=== PATIENT | male | born 1960 | race Caucasian/White ===

== ENCOUNTER 2019-08-05 14:41 | Emergency (ER) | payer OTHER ==
[~2019-08-05] VITALS: Ht 193 cm; Wt 122.5 kg
[2019-08-05] MEDS ORDERED: Truvada Tablet1 EACH PO (16:54)
[2019-08-05] MEDS ORDERED: ZOCOR20 MG PO (16:54)
[2019-08-05] MEDS ORDERED: ACYC400 PO (16:55)
[2019-08-05] MEDS ORDERED: EUTHYROX125 MCG PO (16:55)
[2019-08-05] MEDS ORDERED: SPIR50 PO (16:55)
[2019-08-05] MEDS ORDERED: MELA3 PO (16:56)
[2019-08-05] MEDS ORDERED: GLIP5 PO (16:56)
[2019-08-05] MEDS ORDERED: FINA5 PO (16:56)
[2019-08-05] MEDS ORDERED: THERA-D2000 UNIT PO (16:56)
[2019-08-05] MEDS ORDERED: ALLO300 PO (16:57)
[2019-08-05] MEDS ORDERED: POTA10T PO (16:58)
[2019-08-05] MEDS ORDERED: Depo-Estradio5 MG/ML IM (16:58)
[2019-08-05] MEDS ORDERED: PROG100 PO (16:58)
[2019-08-05] MEDS ORDERED: DIVA500ER PO (16:59)
[2019-08-05] MEDS ORDERED: PALI6TA PO (17:00)
[2019-08-05] MEDS ORDERED: HYDPAM25 PO (17:00)
[2019-08-05] MEDS ORDERED: METPHE5 PO (17:01)
[2019-08-05] MEDS ORDERED: METPHE27ER PO (17:01)
[2019-08-05] MEDS ORDERED: HYDPAM50 PO (17:01)
[2019-08-05] MEDS ORDERED: Zithromax250 MG PO (17:41)
== END 2019-08-05 17:54 | disposition home or self-care (01) ==
LOC: ER 14:41
DX: R05 Cough (principal); E11.9 Type 2 diabetes mellitus without complications; Z79.899 Other long term (current) drug therapy
CPT/HCPCS: 71046; 99283-25

== ENCOUNTER 2025-03-16 01:23 | Emergency (ER) | payer OTHER ==
[~2025-03-16] VITALS: Ht 193 cm; Wt 122.5 kg
[~2025-03-16 01:23] MED LIST: ACYC400 PO; ALLO300 PO; AMLO5 PO; BUPR100ER PO; DIVA500ER PO; Depo-Estradio5 MG/ML IM; EUTHYROX125 MCG PO; FINA5 PO; GLIP5 PO; HYDCHL25 PO; HYDPAM25 PO; HYDPAM50 PO; MELA3 PO; METPHE27ER PO; METPHE5 PO; PALI6TA PO; POTA10T PO; PROG100 PO; SPIR50 PO; THERA-D2000 UNIT PO; Truvada Tablet1 EACH PO; ZOCOR20 MG PO; Zithromax250 MG PO
[2025-03-16 02:09] LABS: BASOPHILS ABSOLUTE AUTO 0.05 K/mm3 (0.00-0.23); BASOPHILS PERCENT AUTO 1 % (0-2); EOSINOPHILS ABSOLUTE AUTO 0.08 K/mm3 (0.00-0.68); EOSINOPHILS PERCENT AUTO 1 % (0-6); Hematocrit 40.6 % (33.0-51.0); Hemoglobin 13.4 g/dL (11.5-16.0); IMMATURE GRAN ABSOLUTE AUTO 0.09 K/mm3 (0.00-0.10); IMMATURE GRAN PERCENT AUTO 1 % (0-1); LYMPHOCYTES ABSOLUTE AUTO 3.38 K/mm3 (0.84-5.20); LYMPHOCYTES PERCENT AUTO 32 % (21-46); MONOCYTES ABSOLUTE AUTO 0.75 K/mm3 (0.16-1.47); MONOCYTES PERCENT AUTO 7 % (4-13); Mean Corpuscular HGB Conc 33.0 g/dL (31.5-36.5); Mean Corpuscular Volume 87 fL (80-100); NEUTROPHILS ABSOLUTE AUTO 6.32 K/mm3 (1.96-9.15); NEUTROPHILS PERCENT AUTO 59 % (41-73); NRBC ABSOLUTE 0.00 K/mm3 (0.00-0.02); NRBC Auto 0.0 /100 WBC (0.0-0.2); Platelet Count 219 K/mm3 (150-400); RDW Coefficient Variation 12.9 % (11.7-14.2); RDW Standard Deviation 40.5 fL (35.1-46.3)
[2025-03-16 02:21] LABS: Alanine Aminotransfer (ALT/SGP 30.0 U/L (12-78); Albumin, Blood 3.6 g/dL (3.4-5.0); Albumin/Globulin Ratio 1.1 (0.8-1.8); Anion Gap 10.0 mmol/L (3-11); Aspartate Aminotrans (AST/SGOT 15.0 U/L (12-37); Bilirubin, Total 0.2 mg/dL (0.1-1.0); Blood Urea Nitrogen 14.0 mg/dL (8-24); CO2, Blood 23.0 mmol/L (21-32); Calcium, Blood 9.1 mg/dL (8.5-10.1); Chloride, Blood 107.0 mmol/L (98-108); Creatinine, Blood 0.88 mg/dL (0.40-1.00); Globulin, Blood 3.3 g/dL (2.2-4.0); Glucose, Blood 213.0 mg/dL (70-99); Potassium, Blood 3.9 mmol/L (3.5-5.5); Sodium, Blood 136.0 mmol/L (136-145); Total Protein, Blood 6.9 g/dL (6.4-8.2)
[2025-03-16 05:34] VITALS: BP 142/95
== END 2025-03-16 05:38 | disposition home or self-care (01) ==
LOC: ER 01:23
PROVIDERS: Emergency Medicine
DX: R20.2 Paresthesia of skin (principal); I10 Essential (primary) hypertension; E11.9 Type 2 diabetes mellitus without complications; F31.81 Bipolar II disorder; Z88.8 Allergy status to other drugs, medicaments and biological substances; Z79.899 Other long term (current) drug therapy
CPT/HCPCS: 70450; 70496; 70498; 80053; 85025; 93005; 93010; 99284-25; Q9967